=== PATIENT | female | born 1980 | race Caucasian/White ===

== ENCOUNTER 2021-04-13 20:13 | Emergency (ER) | payer OTHER ==
[~2021-04-13] VITALS: Ht 167.6 cm; Wt 71.4 kg
[2021-04-13 20:14] VITALS: BP 116/72
[2021-04-13] MEDS ORDERED: COLA100C5 PO (20:20)
[2021-04-13] MEDS ORDERED: FOLI0.4T5 PO (20:20)
[2021-04-13] MEDS ORDERED: GNP28TAB2 PO (20:20)
[2021-04-13] MEDS ORDERED: LAMO100T68 PO (20:20)
[2021-04-13] MEDS ORDERED: ACET-861 PO (20:22)
--- NOTE | 2021-04-14 00:24 | REPVR ---
PROCEDURE INFORMATION: Exam: US First Trimester, Transabdominal Exam date and time: 04/13/2021 11:31 PM Age: 40 years old Clinical indication: Screening exam; Other: heart tones; ; Additional info: Need heart tone, 11 weeks TECHNIQUE: Imaging protocol: Real-time transabdominal obstetrical ultrasound of the maternal pelvis and a first trimester , less than 14 weeks 0 days, with image documentation. COMPARISON: No relevant prior studies available. FINDINGS: Last menstrual period: 01/23/2021 Gestation: There is a single live intrauterine . Presentation: Variable. Embryonic/ heart rate: 183 bpm Extra-embryonic membranes/Placenta: Unremarkable. No subchorionic bleed. Amniotic fluid: Amniotic fluid is normal for gestational age. BIOMETRY: Gestational age (AUA): 11 weeks 5 days Gestational age (LMP): 11 weeks 3 days Estimated due date (AUA): 10/28/2021 Estimated due date (LMP): 10/30/2021 [place]-Rump length: 48.66 mm MATERNAL: Uterus: The uterus is anteverted and unremarkable. No myometrial mass is noted. Cervix: Closed. Right adnexa: The right ovary measures 4.3 cm x 4 cm x 4.5 cm and contains a 3.3 cm x 2.6 cm x 3.4 cm corpus luteal cyst. The arterial and venous color Doppler flow and spectral waveforms within the right ovary are within normal limits, without evidence for right ovarian torsion. Left adnexa: The left ovary was not visualized due to obscuration by intestinal gas. Intraperitoneal space: No free fluid is seen from the images obtained. IMPRESSION: 1. Single live intrauterine with a gestational age by today's ultrasound of 11 weeks 5 days and estimated due date on 10/28/2021. A second trimester obstetrical ultrasound is suggested at 19-20 weeks gestation for a detailed anatomical survey. 2. heart rate of 183 bpm. 3. 3.3 cm x 2.6 cm x 3.4 cm right corpus luteal cyst. Electronically signed by: Wilfrido Hidalgo On 04/14/2021 00:24:16 AM
== END 2021-04-14 00:09 | disposition home or self-care (01) ==
LOC: M ED 20:13
DX: O26.891 Other specified pregnancy related conditions, first trimester (principal); M79.10 Myalgia, unspecified site; R50.9 Fever, unspecified; R51.9 Headache, unspecified; O34.81 Maternal care for other abnormalities of pelvic organs, first trimester; Z3A.11 11 weeks gestation of pregnancy

== ENCOUNTER 2021-09-09 17:38 | Outpatient (CLI) | payer OTHER ==
[~2021-09-09] VITALS: Ht 167.6 cm; Wt 75.3 kg
[~2021-09-09 17:38] MED LIST: ACET-861 PO; COLA100C5 PO; FOLI0.4T5 PO; GNP28TAB2 PO; LAMO100T68 PO
[2021-09-09 18:07] VITALS: BP 132/73
[2021-09-09] MEDS ORDERED: OMEG350C PO (19:03)
[2021-09-09] MEDS ORDERED: ZOLO50TA PO (19:03)
== END 2021-09-09 18:45 | disposition home or self-care (01) ==
LOC: M LDO 17:38
PROVIDERS: ATTEND Obstetrics & Gynecology
DX: O9A.213 Injury, poisoning and certain other consequences of external causes complicating pregnancy, third trimester (principal); S20.229A Contusion of unspecified back wall of thorax, initial encounter; W00.0XXA Fall on same level due to ice and snow, initial encounter; Y92.9 Unspecified place or not applicable; Z3A.32 32 weeks gestation of pregnancy; O09.523 Supervision of elderly multigravida, third trimester; O34.211 Maternal care for low transverse scar from previous cesarean delivery; O99.343 Other mental disorders complicating pregnancy, third trimester; F31.9 Bipolar disorder, unspecified
CPT/HCPCS: 36415; 59025; 85027; 85460; G0463

== ENCOUNTER 2021-09-27 19:13 | Outpatient (CLI) | payer OTHER ==
[~2021-09-27] VITALS: Ht 167.6 cm; Wt 76.8 kg
[~2021-09-27 19:13] MED LIST changes: +OMEG350C PO; +ZOLO50TA PO
[2021-09-27 19:47] VITALS: BP 110/65
[2021-09-27] MEDS ORDERED: MULT1TAB94 PO (19:57)
[2021-09-27] MEDS ORDERED: HOME MED LIST COMPLETE! XX SCH (20:05)
== END 2021-09-27 21:07 | disposition home or self-care (01) ==
LOC: M LDO 19:13
PROVIDERS: ATTEND Registered Nurse
DX: O9A.213 Injury, poisoning and certain other consequences of external causes complicating pregnancy, third trimester (principal); T14.8XXA Other injury of unspecified body region, initial encounter; W01.0XXA Fall on same level from slipping, tripping and stumbling without subsequent striking against object, initial encounter; Y92.9 Unspecified place or not applicable; Z3A.35 35 weeks gestation of pregnancy; O09.523 Supervision of elderly multigravida, third trimester; O32.1XX0 Maternal care for breech presentation, not applicable or unspecified; O34.211 Maternal care for low transverse scar from previous cesarean delivery
CPT/HCPCS: 59025; 76815; G0378; G0463

== ENCOUNTER 2021-10-02 12:05 | Outpatient (CLI) | payer OTHER ==
[~2021-10-02] VITALS: Ht 167.6 cm; Wt 77.9 kg
[~2021-10-02 12:05] MED LIST changes: +MULT1TAB94 PO
[2021-10-02 12:25] VITALS: BP 124/69
[2021-10-02] MEDS ORDERED: BAYE81TA10 PO (12:33)
[2021-10-02] MEDS ORDERED: SERT-141 PO (12:33)
[2021-10-02] MEDS ORDERED: HOME MED LIST COMPLETE! XX SCH (12:35)
== END 2021-10-02 13:45 | disposition home or self-care (01) ==
LOC: M LDO 12:05
PROVIDERS: ATTEND Advanced Practice Midwife
DX: O9A.213 Injury, poisoning and certain other consequences of external causes complicating pregnancy, third trimester (principal); Z3A.36 36 weeks gestation of pregnancy; O09.513 Supervision of elderly primigravida, third trimester; S30.0XXA Contusion of lower back and pelvis, initial encounter; W00.0XXA Fall on same level due to ice and snow, initial encounter; Y92.9 Unspecified place or not applicable
CPT/HCPCS: 59025; G0378; G0463

== ENCOUNTER 2021-10-21 05:35 | Inpatient (IN) | payer OTHER ==
[2021-10-21] VITALS (15 sets, daily range): BP systolic 101–136; BP diastolic 57–80
[~2021-10-21] VITALS: Ht 167.6 cm; Wt 74.9 kg
[~2021-10-21 05:35] MED LIST changes: +BAYE81TA10 PO; +SERT-141 PO
[2021-10-21] MEDS ORDERED: HOME MED LIST COMPLETE! XX SCH (06:05)
[2021-10-21] MEDS ORDERED: LR 1,000 ML IV SCH ×2 (06:35→09:45)
[2021-10-21] MEDS ORDERED: LACTATED RINGER'S 1000 ML IV ONE ×2 (06:35→18:20)
[2021-10-21] MEDS ORDERED: BUPIVACAINE HCL 0.25% 10ML VIAL SC ONE (06:40)
[2021-10-21] MEDS ORDERED: ceFAZolin SOD 2 GM in IV 1 EA IV ONE (06:40)
[2021-10-21] MEDS ORDERED: ACETAMINOPHEN 650 MG SUPP PR ONE (06:40)
[2021-10-21 07:00] LABS: HEMATOCRIT 37.2 % (36.0-47.0); HEMOGLOBIN 12.6 g/dl (12.0-15.5); MEAN CORPUSCULAR HEMOGLOBIN 30.1 pg (27.0-33.0); MEAN CORPUSCULAR HGB CONC 33.9 g/dl (32.0-36.5); PLATELET COUNT, AUTOMATED 317 10^3/uL (150-450); RED BLOOD COUNT 4.18 10^6/uL (4.00-5.40); WHITE BLOOD COUNT 8.1 10^3/uL (4.0-10.0)
[2021-10-21] MEDS ORDERED: BICITRA 30ML SOLN UDC PO ONE (07:00)
[2021-10-21] MEDS ORDERED: AZITHROMYCIN INJ 500 MG, VIAL MATE ADAPTER 1 EACH in NS 250 ML IV ONE (07:00)
[2021-10-21] MEDS ORDERED: OXYTOCIN 30 UNITS IN 0.9% NaCl 500ML IV BAG (J2590) As Ordered ONE ×3 (07:09→10:47)
[2021-10-21] MEDS ORDERED: MORPHINE PRES-FREE INJ 10 MG/10 ML VIAL (J2274) As Ordered ONE (07:09)
[2021-10-21] MEDS ORDERED: ONDANSETRON 4MG/2ML VIAL As Ordered ONE (07:13)
[2021-10-21] MEDS ORDERED: dexameTHASONE 4 MG/ML 1ML VIAL (J1100 PER 1MG) As Ordered ONE (07:13)
[2021-10-21] MEDS ORDERED: OXYTOCIN DRIP 30 UNITS in IV 1 EA IV PRN ×4 (07:20)
[2021-10-21] MEDS ORDERED: METHYLERGONOVINE MALEATE 0.2 MG/ML VIAL (J2210) IM PRN ×2 (07:20→11:20)
[2021-10-21] MEDS ORDERED: OXYTOCIN INJ 10 UNITS/ML VIAL (J2590) IV PRN (07:20)
[2021-10-21] MEDS ORDERED: NALOXONE INJ 0.4MG/1ML VIAL (J2310 PER 1MG) IV PRN ×2 (08:01)
[2021-10-21] MEDS ORDERED: diphenhydrAMINE 50MG/ML VIAL (J1200) IV PRN (08:01)
[2021-10-21] MEDS ORDERED: NALBUPHINE HCL 10 MG/ML AMP (J2300) IV PRN ×2 (08:01→09:45)
[2021-10-21] MEDS ORDERED: ONDANSETRON 4MG/2ML VIAL IV PRN ×2 (08:01→09:45)
[2021-10-21] MEDS ORDERED: METOCLOPRAMIDE INJ 10MG/2ML VIAL (J2765 PER 1) IV PRN (08:01)
[2021-10-21] MEDS ORDERED: GLYCOPYRROLATE INJ 0.2 MG/ML 2 ML VIAL As Ordered ONE (08:41)
[2021-10-21] MEDS ORDERED: ePHEDrine SULFATE 25 MG/5 ML(5MG/ML) SYRINGE As Ordered ONE (08:51)
[2021-10-21 08:53] LABS: CORD GAS ABE V -2.5; CORD GAS HCO3 V 23.6 MEQ/L; CORD GAS O2 SAT V 93.5 %; CORD GAS PCO2 V 45.4 mmHg; CORD GAS PH V 7.333 UNITS; CORD GAS PO2 V 53.8 mmHg; CORD GAS SBC V 22.3 MEQ/L
[2021-10-21] MEDS ORDERED: oxyCODONE 5MG TAB PO PRN (09:45)
[2021-10-21] MEDS ORDERED: KETOROLAC 30 MG/ML 1ML VIAL IV PRN (09:45)
[2021-10-21] MEDS ORDERED: fentaNYL 100 MCG/2 ML INJECTION IV PRN (09:45)
[2021-10-21] MEDS ORDERED: KETOROLAC 30 MG/ML 1ML VIAL As Ordered ONE (10:38)
[2021-10-21] MEDS ORDERED: MOM 30ML SUSPENSION UDC PO PRN (11:20)
[2021-10-21] MEDS ORDERED: MEASLES,MUMPS,RUBELLA VACCINE INJ (MMR-II) (90707) SC SCH (11:20)
[2021-10-21] MEDS ORDERED: RHOGAM 300 MCG (1500 IU) INJ (J2790) IM SCH (11:20)
[2021-10-21] MEDS ORDERED: OXYTOCIN DRIP 30 UNITS in IV 1 EA IV ONE (11:20)
[2021-10-21] MEDS ORDERED: ANUSOL HC CREAM 30GM TOP PRN (11:20)
[2021-10-21] MEDS ORDERED: ACETAMINOPHEN TAB 650MG DOSE (2X325MG) PO PRN (11:20)
[2021-10-21] MEDS ORDERED: DOCUSATE SODIUM 100MG CAPSULE PO PRN (11:20)
[2021-10-21] MEDS ORDERED: IBUPROFEN 600MG TAB PO PRN (11:20)
[2021-10-21] MEDS ORDERED: METHYLERGONOVINE MALEATE 0.2 MG TAB PO PRN (11:20)
[2021-10-21] MEDS ORDERED: oxyCODONE 5MG TAB As Ordered ONE (12:53)
[2021-10-21] MEDS ORDERED: LAMO100T80 PO (13:34)
[2021-10-21] MEDS ORDERED: TRANEXAMIC ACID INJection 1,000 MG in NS 100 ML IV ONE (14:25)
[2021-10-21 14:47] LABS: BASO # 0.1 10^3/uL (0.0-0.2); BASO % 0.3 % (0.0-1.0); EOS % 0.1 % (0.0-3.0); HEMATOCRIT 27.7 % (36.0-47.0); LYMPH # 2.1 10^3/uL (1.5-5.0); LYMPH % 12.6 % (24.0-44.0); MEAN CORPUSCULAR HEMOGLOBIN 30.4 pg (27.0-33.0); MEAN CORPUSCULAR HGB CONC 33.9 g/dl (32.0-36.5); MEAN CORPUSCULAR VOLUME 89.6 fl (80.0-96.0); MONO # 1.5 10^3/uL (0.0-0.8); MONO % 8.7 % (2.0-8.0); NEUTROPHILS # 13.1 10^3/uL (1.5-8.5); NEUTROPHILS % 77.6 % (36.0-66.0); RED BLOOD COUNT 3.09 10^6/uL (4.00-5.40); WHITE BLOOD COUNT 16.9 10^3/uL (4.0-10.0)
[2021-10-21 14:51] LABS: HEMOGLOBIN 9.4 g/dl (12.0-15.5); PLATELET COUNT, AUTOMATED 204 10^3/uL (150-450)
[2021-10-21] MEDS ORDERED: LR 500 ML IV ONE (15:35)
[2021-10-21] MEDS: KETOROLAC 30 MG/ML 1ML VIAL IV SCH ×2 (17:12→22:53)
[2021-10-21] MEDS ORDERED: LR 1,000 ML IV ONE (17:50)
[2021-10-21] MEDS: lamoTRIgine 100MG TAB PO SCH (18:45)
[2021-10-21] MEDS: SERTRALINE HCL 50 MG TAB PO SCH (18:45)
[2021-10-21] MEDS: LR 1,000 ML IV SCH ×2 (19:20→21:00)
[2021-10-21] MEDS ORDERED: lamoTRIgine 100MG TAB PO SCH (21:00)
[2021-10-21] MEDS: ACETAMINOPHEN 500 MG TAB PO PRN (21:46)
[2021-10-21 22:16] LABS: MEAN CORPUSCULAR HEMOGLOBIN 29.9 pg (27.0-33.0); MEAN CORPUSCULAR HGB CONC 32.4 g/dl (32.0-36.5); MEAN CORPUSCULAR VOLUME 92.5 fl (80.0-96.0); PLATELET COUNT, AUTOMATED 142 10^3/uL (150-450); RED BLOOD COUNT 1.87 10^6/uL (4.00-5.40); WHITE BLOOD COUNT 11.5 10^3/uL (4.0-10.0)
[2021-10-21 22:18] LABS: HEMATOCRIT 17.3 % (36.0-47.0); HEMOGLOBIN 5.6 g/dl (12.0-15.5)
[2021-10-22] VITALS (20 sets, daily range): BP systolic 93–135; BP diastolic 50–75
[2021-10-22] MEDS: LR 1,000 ML IV SCH (03:20)
[2021-10-22] MEDS: ACETAMINOPHEN 500 MG TAB PO PRN (03:50)
[2021-10-22] MEDS: SIMETHICONE 80MG CHEW TAB PO PRN ×2 (04:21→12:40)
[2021-10-22] MEDS: KETOROLAC 30 MG/ML 1ML VIAL IV SCH (04:22)
[2021-10-22] MEDS: lamoTRIgine 100MG TAB PO SCH ×2 (06:57→19:35)
[2021-10-22] MEDS: SERTRALINE HCL 50 MG TAB PO SCH ×2 (06:57→19:35)
[2021-10-22 07:11] LABS: HEMATOCRIT 21.4 % (36.0-47.0); HEMOGLOBIN 7.1 g/dl (12.0-15.5); MEAN CORPUSCULAR HEMOGLOBIN 29.5 pg (27.0-33.0); MEAN CORPUSCULAR HGB CONC 33.2 g/dl (32.0-36.5); MEAN CORPUSCULAR VOLUME 88.8 fl (80.0-96.0); PLATELET COUNT, AUTOMATED 121 10^3/uL (150-450); RED BLOOD COUNT 2.41 10^6/uL (4.00-5.40)
[2021-10-22] MEDS: PRENATAL VITAMINS CHEWABLE TABLET PO SCH (08:28)
[2021-10-22] MEDS: PERCOCET 5MG/325MG TAB PO PRN ×3 (08:29→21:05)
[2021-10-22] MEDS ORDERED: SERTRALINE 100 MG TAB PO SCH (09:00)
[2021-10-22] MEDS: IBUPROFEN 600MG TAB PO PRN ×2 (12:41→19:36)
[2021-10-22 14:54] LABS: HEMATOCRIT 27.9 % (36.0-47.0); HEMOGLOBIN 9.6 g/dl (12.0-15.5); MEAN CORPUSCULAR HEMOGLOBIN 29.6 pg (27.0-33.0); MEAN CORPUSCULAR HGB CONC 34.4 g/dl (32.0-36.5); MEAN CORPUSCULAR VOLUME 86.1 fl (80.0-96.0); PLATELET COUNT, AUTOMATED 132 10^3/uL (150-450); RED BLOOD COUNT 3.24 10^6/uL (4.00-5.40); WHITE BLOOD COUNT 10.5 10^3/uL (4.0-10.0)
[2021-10-23] VITALS (7 sets, daily range): BP systolic 114–157; BP diastolic 61–82
[2021-10-23] MEDS: IBUPROFEN 600MG TAB PO PRN ×4 (02:18→20:13)
[2021-10-23] MEDS: PERCOCET 5MG/325MG TAB PO PRN ×6 (03:17→21:19)
[2021-10-23 07:05] LABS: HEMATOCRIT 26.4 % (36.0-47.0); MEAN CORPUSCULAR HEMOGLOBIN 29.6 pg (27.0-33.0); MEAN CORPUSCULAR HGB CONC 34.1 g/dl (32.0-36.5); MEAN CORPUSCULAR VOLUME 86.8 fl (80.0-96.0); PLATELET COUNT, AUTOMATED 136 10^3/uL (150-450); RED BLOOD COUNT 3.04 10^6/uL (4.00-5.40); WHITE BLOOD COUNT 11.2 10^3/uL (4.0-10.0)
[2021-10-23] MEDS: SERTRALINE HCL 50 MG TAB PO SCH ×2 (07:57→20:13)
[2021-10-23] MEDS: lamoTRIgine 100MG TAB PO SCH ×2 (07:58→20:13)
[2021-10-23] MEDS: PRENATAL VITAMINS CHEWABLE TABLET PO SCH (07:58)
[2021-10-23] MEDS: SIMETHICONE 80MG CHEW TAB PO PRN ×2 (09:14→20:13)
[2021-10-24 02:00] VITALS: BP 119/67
[2021-10-24] MEDS: IBUPROFEN 600MG TAB PO PRN ×2 (02:32→08:36)
[2021-10-24] MEDS: PERCOCET 5MG/325MG TAB PO PRN ×2 (04:56→10:56)
[2021-10-24 06:00] VITALS: BP 120/66
[2021-10-24] MEDS: PRENATAL VITAMINS CHEWABLE TABLET PO SCH (07:32)
[2021-10-24] MEDS: lamoTRIgine 100MG TAB PO SCH (07:32)
[2021-10-24] MEDS: SERTRALINE HCL 50 MG TAB PO SCH (07:32)
[2021-10-24] MEDS ORDERED: LAMO100T80 PO ×2 (08:08)
[2021-10-24] MEDS ORDERED: IBUP-1022 PO (08:08)
[2021-10-24] MEDS ORDERED: PERCOCET PO (08:08)
[2021-10-24] MEDS ORDERED: SERT50TA29 PO ×2 (08:08)
[2021-10-24] MEDS ORDERED: COLA100C5 PO (08:08)
[2021-10-24 10:00] VITALS: BP 129/61
[2021-10-25] MEDS ORDERED: PRENTAB9 PO (13:12)
[2021-10-25] MEDS ORDERED: FOLI1TAB11 PO (13:13)
== END 2021-10-24 12:45 | disposition home or self-care (01) | DRG 772 ==
LOC: M LDI 05:35 → M OBS 13:05
PROVIDERS: ADMIT Obstetrics & Gynecology; ATTEND Obstetrics & Gynecology
PROC: 10D00Z1 Extraction of Products of Conception, Low, Open Approach (ICD-10-PCS; principal; 2021-10-21 07:30)
PROC: 30233N1 Transfusion of Nonautologous Red Blood Cells into Peripheral Vein, Percutaneous Approach (ICD-10-PCS; 2021-10-23)
DX: O34.211 Maternal care for low transverse scar from previous cesarean delivery (principal); O72.2 Delayed and secondary postpartum hemorrhage; Z37.0 Single live birth; O09.523 Supervision of elderly multigravida, third trimester; Z3A.38 38 weeks gestation of pregnancy

== ENCOUNTER 2021-10-25 12:43 | Inpatient (IN) | payer OTHER ==
[2021-10-25] VITALS (12 sets, daily range): BP systolic 115–171; BP diastolic 66–96
[~2021-10-25] VITALS: Ht 167.6 cm; Wt 75.0 kg
[~2021-10-25 12:43] MED LIST changes: +IBUP-1022 PO; +LAMO100T80 PO; +PERCOCET PO; +SERT50TA29 PO
[2021-10-25] MEDS ORDERED: PRENTAB9 PO (13:12)
[2021-10-25] MEDS ORDERED: FOLI1TAB11 PO (13:13)
[2021-10-25] MEDS ORDERED: HOME MED LIST COMPLETE! XX SCH (13:15)
[2021-10-25] MEDS ORDERED: CALCIUM GLUCONATE 1,000 MG in D5W MINI-BAG PLUS 100 ML IV PRN (13:25)
[2021-10-25] MEDS ORDERED: MAG Sulf (L&D) 4 GM/100 ML 4 GM in IV 1 EA IV ONE (13:25)
[2021-10-25] MEDS ORDERED: SIMETHICONE 80MG CHEW TAB PO PRN (13:45)
[2021-10-25] MEDS ORDERED: ONDANSETRON 4 MG ORAL DISINTEGRATING TAB PO PRN (13:45)
[2021-10-25 13:54] LABS: APPEARANCE, URINE CLEAR (CLEAR); BACTERIA, URINE AUTO NEGATIVE (NEGATIVE); BILIRUBIN, URINE AUTO NEGATIVE (NEGATIVE); BLOOD, URINE BLOOD 1+ (NEGATIVE); COLOR, URINE YELLOW (YELLOW); GLUCOSE, URINE (UA) AUTO NEGATIVE (NEGATIVE); KETONE, URINE AUTO NEGATIVE (NEGATIVE); LEUKOCYTE ESTERASE, URINE AUTO NEGATIVE (NEGATIVE); MUCUS, URINE SMALL (NEGATIVE); NITRITE, URINE AUTO NEGATIVE (NEGATIVE); PROTEIN, URINE AUTO NEGATIVE (NEGATIVE); RBC, URINE AUTO 2 /HPF (0-3); SPECIFIC GRAVITY URINE AUTO 1.011 (1.002-1.035); SQUAMOUS EPITHELIAL CELL UR AU 1 /HPF (0-6); UROBILINOGEN, URINE AUTO 0.2 mg/dL (0.0-2.0); WBC, URINE AUTO 1 /HPF (0-3)
[2021-10-25] MEDS: LR 1,000 ML IV SCH (13:57)
[2021-10-25 14:11] LABS: HEMATOCRIT 26.3 % (36.0-47.0); HEMOGLOBIN 8.9 g/dl (12.0-15.5); MEAN CORPUSCULAR HEMOGLOBIN 30.3 pg (27.0-33.0); MEAN CORPUSCULAR HGB CONC 33.8 g/dl (32.0-36.5); MEAN CORPUSCULAR VOLUME 89.5 fl (80.0-96.0); PLATELET COUNT, AUTOMATED 287 10^3/uL (150-450); RED BLOOD COUNT 2.94 10^6/uL (4.00-5.40); WHITE BLOOD COUNT 9.1 10^3/uL (4.0-10.0)
[2021-10-25 14:18] LABS: ALBUMIN 2.3 GM/DL (3.2-5.2); ALT/SGPT 53 U/L (12-78); BILIRUBIN,TOTAL 0.7 MG/DL (0.2-1.0); BLOOD UREA NITROGEN 7 MG/DL (7-18); CALCIUM LEVEL 8.3 MG/DL (8.5-10.1); CARBON DIOXIDE LEVEL 26 MEQ/L (21-32); CHLORIDE LEVEL 107 MEQ/L (98-107); CREATININE FOR GFR 0.64 MG/DL (0.55-1.30); GLOMERULAR FILTRATION RATE > 60.0 (>58); GLUCOSE, FASTING 92 MG/DL (70-100); LDH LACTATE DEHYDROGENASE 267 U/L (84-246); POTASSIUM SERUM 4.1 MEQ/L (3.5-5.1); SODIUM LEVEL 139 MEQ/L (136-145); TOTAL PROTEIN 5.3 GM/DL (6.4-8.2); URIC ACID 4.1 MG/DL (2.6-6.0)
[2021-10-25] MEDS: MAG Sulf (OBGYN) 20GM/500ML 20,000 MG in IV 1 EA IV SCH ×2 (14:18→23:49)
[2021-10-25 14:21] LABS: CREATININE,RANDOM URINE 46.7 MG/DL; TOTAL PROTEIN,RANDOM URINE 13.7 MG/DL (0.0-12.0)
[2021-10-25] MEDS: ACETAMINOPHEN 500 MG TAB PO PRN ×2 (14:45→23:56)
[2021-10-25] MEDS: IBUPROFEN 800 MG TAB PO PRN (17:08)
[2021-10-25] MEDS ORDERED: oxyCODONE 5MG TAB As Ordered ONE (19:44)
[2021-10-25] MEDS: oxyCODONE 5MG TAB PO PRN (19:45)
[2021-10-25] MEDS ORDERED: PROMETHAZINE INJ 25 MG/ML VIAL (J2550) IV ONE (20:00)
[2021-10-25] MEDS: SERTRALINE HCL 50 MG TAB PO SCH (20:05)
[2021-10-25] MEDS: lamoTRIgine 100MG TAB PO SCH (20:06)
[2021-10-25] MEDS: DOCUSATE SODIUM 100MG CAPSULE PO SCH (20:06)
[2021-10-26] VITALS (20 sets, daily range): BP systolic 115–164; BP diastolic 65–89
[2021-10-26 03:26] LABS: HEMATOCRIT 28.6 % (36.0-47.0); HEMOGLOBIN 9.3 g/dl (12.0-15.5); MEAN CORPUSCULAR HEMOGLOBIN 29.3 pg (27.0-33.0); MEAN CORPUSCULAR HGB CONC 32.5 g/dl (32.0-36.5); MEAN CORPUSCULAR VOLUME 90.2 fl (80.0-96.0); PLATELET COUNT, AUTOMATED 302 10^3/uL (150-450); RED BLOOD COUNT 3.17 10^6/uL (4.00-5.40); WHITE BLOOD COUNT 8.5 10^3/uL (4.0-10.0)
[2021-10-26] MEDS: LR 1,000 ML IV SCH (03:32)
[2021-10-26 03:54] LABS: ALBUMIN 2.2 GM/DL (3.2-5.2); ALT/SGPT 39 U/L (12-78); BILIRUBIN,TOTAL 0.2 MG/DL (0.2-1.0); BLOOD UREA NITROGEN 8 MG/DL (7-18); CALCIUM LEVEL 6.6 MG/DL (8.5-10.1); CARBON DIOXIDE LEVEL 27 MEQ/L (21-32); CHLORIDE LEVEL 109 MEQ/L (98-107); CREATININE FOR GFR 0.51 MG/DL (0.55-1.30); GLOMERULAR FILTRATION RATE > 60.0 (>58); GLUCOSE, FASTING 87 MG/DL (70-100); MAGNESIUM LEVEL 6.3 MG/DL (1.8-2.4); SODIUM LEVEL 141 MEQ/L (136-145); TOTAL PROTEIN 5.8 GM/DL (6.4-8.2)
[2021-10-26] MEDS: IBUPROFEN 800 MG TAB PO PRN ×2 (05:03→15:53)
[2021-10-26] MEDS ORDERED: oxyCODONE 5MG TAB As Ordered ONE ×2 (07:10→14:08)
[2021-10-26] MEDS: oxyCODONE 5MG TAB PO PRN ×3 (07:11→20:17)
[2021-10-26] MEDS: DOCUSATE SODIUM 100MG CAPSULE PO SCH ×2 (08:36→20:17)
[2021-10-26] MEDS: FOLIC ACID 1 MG TAB PO SCH (08:36)
[2021-10-26] MEDS: SERTRALINE HCL 50 MG TAB PO SCH ×2 (08:37→20:17)
[2021-10-26] MEDS: PRENATAL VITAMINS CHEWABLE TABLET PO SCH (08:37)
[2021-10-26] MEDS: lamoTRIgine 100MG TAB PO SCH ×2 (08:37→20:17)
[2021-10-26] MEDS: NIFEdipine 30 MG XL TAB PO SCH (09:00)
[2021-10-26] MEDS: MAG Sulf (OBGYN) 20GM/500ML 20,000 MG in IV 1 EA IV SCH (10:52)
[2021-10-26] MEDS: ACETAMINOPHEN 500 MG TAB PO PRN ×2 (10:55→18:56)
[2021-10-26 13:55] LABS: HEMATOCRIT 31.2 % (36.0-47.0); HEMOGLOBIN 10.3 g/dl (12.0-15.5); MEAN CORPUSCULAR HEMOGLOBIN 29.8 pg (27.0-33.0); MEAN CORPUSCULAR VOLUME 90.2 fl (80.0-96.0); PLATELET COUNT, AUTOMATED 364 10^3/uL (150-450); RED BLOOD COUNT 3.46 10^6/uL (4.00-5.40); WHITE BLOOD COUNT 8.1 10^3/uL (4.0-10.0)
[2021-10-26 14:39] LABS: ALBUMIN 2.4 GM/DL (3.2-5.2); ALT/SGPT 52 U/L (12-78); BILIRUBIN,TOTAL 0.2 MG/DL (0.2-1.0); BLOOD UREA NITROGEN 9 MG/DL (7-18); CALCIUM LEVEL 6.4 MG/DL (8.5-10.1); CARBON DIOXIDE LEVEL 27 MEQ/L (21-32); CHLORIDE LEVEL 104 MEQ/L (98-107); CREATININE FOR GFR 0.55 MG/DL (0.55-1.30); GLOMERULAR FILTRATION RATE > 60.0 (>58); GLUCOSE, FASTING 98 MG/DL (70-100); MAGNESIUM LEVEL 6.9 MG/DL (1.8-2.4); POTASSIUM SERUM 4.2 MEQ/L (3.5-5.1); SODIUM LEVEL 138 MEQ/L (136-145); TOTAL PROTEIN 5.7 GM/DL (6.4-8.2)
[2021-10-27] MEDS: IBUPROFEN 800 MG TAB PO PRN ×3 (00:44→13:06)
[2021-10-27 02:00] VITALS: BP 134/85
[2021-10-27] MEDS: oxyCODONE 5MG TAB PO PRN (05:30)
[2021-10-27 06:00] VITALS: BP 146/80
[2021-10-27] MEDS ORDERED: ACET-683 PO (06:33)
[2021-10-27] MEDS ORDERED: FIORICET TAB PO PRN (07:25)
[2021-10-27] MEDS: DOCUSATE SODIUM 100MG CAPSULE PO SCH (08:58)
[2021-10-27] MEDS: lamoTRIgine 100MG TAB PO SCH (08:58)
[2021-10-27] MEDS: SERTRALINE HCL 50 MG TAB PO SCH (08:58)
[2021-10-27 08:59] VITALS: BP 140/76
[2021-10-27] MEDS: PRENATAL VITAMINS CHEWABLE TABLET PO SCH (08:59)
[2021-10-27] MEDS: NIFEdipine 30 MG XL TAB PO SCH (08:59)
[2021-10-27] MEDS: FOLIC ACID 1 MG TAB PO SCH (08:59)
[2021-10-27 10:00] VITALS: BP 143/82
[2021-10-27 14:00] VITALS: BP 126/67
[2021-10-27] MEDS ORDERED: BUTA-198 PO (14:24)
[2021-10-27] MEDS ORDERED: NIFE1TAB52 PO (14:24)
[2021-10-28] MEDS ORDERED: NIFE30TA50 (14:00)
== END 2021-10-27 16:15 | disposition home or self-care (01) | DRG 776 ==
LOC: M LDO 12:43 → M LDI 15:00 → M OBS 10-26 15:23
PROVIDERS: ADMIT Registered Nurse; ATTEND Registered Nurse
DX: O14.15 Severe pre-eclampsia, complicating the puerperium (principal)

== ENCOUNTER 2021-10-28 13:45 | Emergency (ER) | payer OTHER ==
[~2021-10-28] VITALS: Ht 167.6 cm; Wt 72.3 kg
[~2021-10-28 13:45] MED LIST changes: +ACET-683 PO; +BUTA-198 PO; +FOLI1TAB11 PO; +NIFE1TAB52 PO; +PRENTAB9 PO
[2021-10-28 13:46] VITALS: BP 152/73
[2021-10-28] MEDS ORDERED: NIFE30TA50 (14:00)
== END 2021-10-28 15:24 | disposition left against medical advice (07) ==
LOC: M ED 13:45
DX: Z53.21 Procedure and treatment not carried out due to patient leaving prior to being seen by health care provider (principal)

== ENCOUNTER 2022-01-21 06:53 | Day surgery (SDC) | payer OTHER ==
[~2022-01-21] VITALS: Ht 167.6 cm; Wt 70.3 kg
[~2022-01-21 06:53] MED LIST changes: +FLON1SPR; +KP F1200 PO; +NIFE30TA50
[2022-01-21] MEDS ORDERED: LR 1,000 ML IV SCH (06:55)
[2022-01-21] MEDS ORDERED: MIDAZOLAM INJ 2MG/2ML VIAL (J2250 PER 1MG) As Ordered ONE ×2 (08:32→13:53)
[2022-01-21] MEDS ORDERED: ONDANSETRON 4MG/2ML VIAL As Ordered ONE (08:33)
[2022-01-21] MEDS ORDERED: LIDOCAINE 2% 100MG/5ML SDV (FOR ANES.) As Ordered ONE (08:33)
[2022-01-21] MEDS ORDERED: propofoL 200 MG/20 ML VIAL As Ordered ONE ×2 (08:33→13:57)
[2022-01-21] MEDS ORDERED: ACETAMINOPHEN 1000MG 100ML IV BTL (OFIRMEV) (J0131 PER 10MG) As Ordered ONE (08:33)
[2022-01-21] MEDS ORDERED: fentaNYL 100 MCG/2 ML INJECTION As Ordered ONE ×2 (08:33→13:51)
[2022-01-21] MEDS ORDERED: LIDOCAINE 1% SDV 30ML VIAL As Ordered ONE (12:27)
[2022-01-21] MEDS ORDERED: BUPIVACAINE HCL 0.5% 30ML VIAL As Ordered ONE (12:27)
[2022-01-21] MEDS ORDERED: ceFAZolin 2 GM/D5W 50 ML IV BAG (J0690 PER 500MG) As Ordered ONE (12:51)
[2022-01-21] MEDS ORDERED: ePHEDrine SULFATE 25 MG/5 ML(5MG/ML) SYRINGE As Ordered ONE (13:15)
[2022-01-21 14:50] VITALS: BP 121/72
== END 2022-01-21 15:25 | disposition home or self-care (01) ==
LOC: M SDC 06:53
PROVIDERS: ATTEND Podiatrist Foot & Ankle Surgery
DX: M77.52 Other enthesopathy of left foot and ankle (principal); M24.272 Disorder of ligament, left ankle; D68.51 Activated protein C resistance; D64.9 Anemia, unspecified; F41.9 Anxiety disorder, unspecified; F32.A Depression, unspecified; Z79.899 Other long term (current) drug therapy
CPT/HCPCS: 27635; 27664; 27698; 76000; 81025; 88300; C1713; J0131; J0690; J2250; J2405; J3010

== ENCOUNTER → 2022-01-27 | Outpatient (CLI) | payer OTHER | LOC: M WHC 11:55 | PROVIDERS: ATTEND Nurse Practitioner Primary Care | DX: Z12.31 Encounter for screening mammogram for malignant neoplasm of breast (principal); Z53.9 Procedure and treatment not carried out, unspecified reason ==